=== PATIENT | male | born 1940 | race Caucasian/White ===

== ENCOUNTER → 2017-02-08 | Outpatient (CLI) | payer MEDICARE ==
[~2017-02-08] MED LIST: APIX5TAB PO; ASPI-515 PO; ATOR40TA78 PO; CARV6.2512 PO; CLOP75TA PO; LISI-170 PO; SIMV20TA3 PO
[2017-02-08 10:58] LABS: ASPARTATE AMINO TRANSFERASE 16 U/L (15-37); BLOOD UREA NITROGEN 24 mg/dL (7-18)
== END | disposition home or self-care (01) ==
LOC: STAR 09:18
PROVIDERS: ATTEND Urology
DX: Z01.818 Encounter for other preprocedural examination (principal); R33.9 Retention of urine, unspecified; R79.1 Abnormal coagulation profile
CPT/HCPCS: 36415; 80053; 81001; 85025; 85610; 85730; 87077; 87086; 93005

== ENCOUNTER 2017-02-20 12:27 | Observation (INO) | payer MEDICARE ==
[~2017-02-20] VITALS: Ht 188 cm; Wt 93.6 kg
[2017-02-20] MEDS ORDERED: MIDAZOLAM 1 MG/ML, 2ML ONE (12:43)
[2017-02-20] MEDS ORDERED: FENTANYL PF 100 MCG/2ML ONE (12:43)
[2017-02-20] MEDS ORDERED: CEFTRIAXONE PMX 1GM/50ML 50 ML IV ONE (12:57)
[2017-02-20] MEDS ORDERED: GENTAMICIN 80 MG/2 ML IM ONE (12:57)
[2017-02-20] MEDS ORDERED: LACTATED RINGERS 1,000 ML IV SCH (12:57)
[2017-02-20] MEDS ORDERED: LEVO500T33 PO (13:04)
[2017-02-20] MEDS ORDERED: GENTAMICIN 80 MG in SODIUM CHLORIDE 0.9% 50 ML IV ONE (13:30)
[2017-02-20] MEDS ORDERED: METOPROLOL 1 MG/ML, 5ML ONE (14:25)
[2017-02-20] MEDS ORDERED: GENTAMICIN 80 MG/2 ML ONE (14:25)
[2017-02-20] MEDS ORDERED: PROPOFOL 10 MG/ML, 20ML ONE (14:25)
[2017-02-20] MEDS ORDERED: PHENYLEPHRINE 10 MG/ML ONE (14:25)
[2017-02-20] MEDS ORDERED: hydrALAzine 20 MG/ML, 1ML IV PRN (14:30)
[2017-02-20] MEDS ORDERED: ONDANSETRON 2MG/ML, 2ML IVPush PRN (14:30)
[2017-02-20] MEDS ORDERED: HYDROmorphone 1 MG/ML, 1ML IV PRN (14:30)
[2017-02-20] MEDS ORDERED: OXYcodone 5 MG/5 ML ORAL.SOL UDC PO PRN (14:30)
[2017-02-20] MEDS ORDERED: FENTANYL PF 100 MCG/2ML IV PRN (14:30)
[2017-02-20] MEDS ORDERED: PROMETHAZINE 25 MG/ML, 1ML IV PRN (14:30)
[2017-02-20] MEDS ORDERED: LABETALOL 5MG/ML, 20ML IV PRN (14:30)
[2017-02-20] MEDS ORDERED: METOCLOPRAMIDE 5 MG/ML, 2ML IV PRN (14:30)
[2017-02-20] MEDS ORDERED: D5%-LACTATED RINGERS 1,000 ML IV SCH (15:40)
[2017-02-20] MEDS ORDERED: CEFOXITIN PMX 1GM/50ML 50 ML IVPB SCH (16:00)
[2017-02-20] MEDS ORDERED: OPIUM/BELLADONNA SUPP.RECT 16.2-30 MG PR PRN (16:00)
[2017-02-20] MEDS ORDERED: HYDROcodone/APAP 5/325 TABLET PO PRN (16:00)
[2017-02-20] MEDS ORDERED: OXYcodone 5 MG/5 ML ORAL.SOL UDC ONE (16:15)
[2017-02-20 17:40] VITALS: BP 114/81
[2017-02-20] MEDS ORDERED: CEFOTETAN PMX 1GM/50ML 50 ML IV SCH (18:30)
[2017-02-20] MEDS: CEFOTETAN PMX 1GM/50ML 50 ML IV SCH (18:41)
[2017-02-20 18:48] VITALS: BP 114/74
[2017-02-20] MEDS ORDERED: SIMVASTATIN 20 MG TABLET PO SCH (21:00)
[2017-02-20] MEDS ORDERED: ATORVASTATIN 80 MG TABLET PO SCH (21:00)
[2017-02-20] MEDS: APIXABAN 5 MG TABLET PO SCH (22:19)
[2017-02-20] MEDS: CARVEDILOL 6.25 MG TABLET PO SCH (22:19)
[2017-02-20 23:14] VITALS: BP 100/63
[2017-02-21 04:12] VITALS: BP 95/61
[2017-02-21] MEDS: CEFOTETAN PMX 1GM/50ML 50 ML IV SCH (05:56)
[2017-02-21 08:50] VITALS: BP 125/70
[2017-02-21] MEDS ORDERED: LISINOPRIL 20 MG TABLET PO SCH (09:00)
[2017-02-21] MEDS ORDERED: ASPIRIN 81 MG TABLET EC PO SCH (09:00)
[2017-02-21] MEDS ORDERED: CLOPIDOGREL 75 MG TABLET PO SCH (09:00)
[2017-02-21] MEDS: APIXABAN 5 MG TABLET PO SCH (09:06)
[2017-02-21] MEDS: CARVEDILOL 6.25 MG TABLET PO SCH (09:06)
== END 2017-02-21 13:00 | disposition home or self-care (01) ==
LOC: OUT 12:27 → ORIP 15:47 → 4NOR 17:29
PROVIDERS: ADMIT Urology; ATTEND Urology
DX: N40.1 Benign prostatic hyperplasia with lower urinary tract symptoms (principal); R33.8 Other retention of urine; Z95.5 Presence of coronary angioplasty implant and graft
CPT/HCPCS: 52648; 82962; 96365; 96375; G0378; J0696; J1580; J2250; J2370; J2704; J3010; J7120; S0074; J1170; J7121

== ENCOUNTER → 2020-01-22 | Outpatient (CLI) | payer MEDICARE ==
[~2020-01-22] MED LIST changes: +LEVO500T47 PO; +SIMV20TA19 PO; -SIMV20TA3 PO
== END | disposition home or self-care (01) ==
LOC: CVU 13:40
PROVIDERS: ATTEND Internal Medicine Cardiovascular Disease
DX: I08.0 Rheumatic disorders of both mitral and aortic valves (principal); R06.02 Shortness of breath; I25.10 Atherosclerotic heart disease of native coronary artery without angina pectoris; I48.91 Unspecified atrial fibrillation
CPT/HCPCS: 93306

== ENCOUNTER 2020-02-05 09:58 | Day surgery (SDC) | payer MEDICARE ==
[~2020-02-05] VITALS: Ht 188 cm; Wt 91.0 kg
[2020-02-05] MEDS ORDERED: WARF5TAB PO (10:25)
[2020-02-05 10:31] VITALS: BP 144/92
[2020-02-05 10:55] LABS: INTERNATIONAL NORMALIZED RATIO 2.24 (0.93-1.1); PROTHROMBIN TIME 23.9 Seconds (9.6-11.5)
[2020-02-05] MEDS ORDERED: PROPOFOL 10 MG/ML, 20ML ONE (11:11)
== END 2020-02-05 12:26 | disposition home or self-care (01) ==
LOC: CACL 09:58
PROVIDERS: ATTEND Internal Medicine Cardiovascular Disease
DX: I48.91 Unspecified atrial fibrillation (principal); I25.10 Atherosclerotic heart disease of native coronary artery without angina pectoris; I10 Essential (primary) hypertension; Z79.01 Long term (current) use of anticoagulants; Z79.899 Other long term (current) drug therapy; Z95.5 Presence of coronary angioplasty implant and graft
CPT/HCPCS: 36415; 85610; 92960; 93005; J2704